=== PATIENT | male | born 1995 | race African-American/Black ===

== ENCOUNTER 2018-04-27 14:21 | Emergency (ER) | payer OTHER ==
[~2018-04-27] VITALS: Ht 172.7 cm; Wt 77.1 kg
[2018-04-27 15:15] VITALS: BP 140/84
[2018-04-27] MEDS ORDERED: MOBIC7.5 MG PO (15:44)
== END 2018-04-27 16:00 | disposition home or self-care (01) ==
LOC: ER 14:21
DX: S83.91XA Sprain of unspecified site of right knee, initial encounter (principal); X50.1XXA Overexertion from prolonged static or awkward postures, initial encounter; Y92.89 Other specified places as the place of occurrence of the external cause; Y93.67 Activity, basketball; Y99.8 Other external cause status